=== PATIENT | female | born 1950 | race Caucasian/White ===

== ENCOUNTER 2021-07-08 11:09 | Inpatient (IN) | payer OTHER, MEDICARE ==
[2021-07-08] MEDS ORDERED: SODIUM CHLORIDE 1,000 ML IV STA (13:10)
[2021-07-08 13:59] LABS: HEMOGLOBIN 13.9 GM/dL (10.7-15.3); MCH 29.1 pg (25.7-33.7); MCHC 33.9 g/dl (32.0-36.0); MEAN PLT VOLUME 8.9 fl (7.5-11.1); RBC 4.76 M/mm3 (3.60-5.2); RDW 14.6 % (11.6-15.6); WHITE BLOOD COUNT 2.1 K/mm3 (4.0-10.0)
[2021-07-08 14:13] LABS: EPI CELLS 20 /uL (0-25.1); HYALINE CASTS 12 /uL (0-3.1); URINE APPEARANCE CLEAR; URINE BACTERIA 13 /uL (0-1359); URINE BILIRUBIN 2+ (NEGATIVE); URINE COLOR DK YELLOW; URINE GLUCOSE (UA) NEGATIVE (NEGATIVE); URINE KETONE 3+ (NEGATIVE); URINE LEUK ESTERASE TRACE (NEGATIVE); URINE NITRITE NEGATIVE (NEGATIVE); URINE PROTEIN 3+ (NEGATIVE); URINE RBC 18 /uL (0-23.9); URINE WBC 19 /uL (0-25.8)
[2021-07-08 14:21] LABS: ALBUMIN 3.2 g/dl (3.4-5.0); BLOOD UREA NITROGEN 20.9 mg/dL (7-18)
[2021-07-08 14:24] LABS: CREATININE 0.8 mg/dL (0.55-1.3)
[2021-07-08 14:25] LABS: BILIRUBIN,TOTAL 1.4 mg/dL (0.2-1)
[2021-07-08 14:26] LABS: TOT PROT 6.3 g/dl (6.4-8.2)
[2021-07-08 14:44] LABS: ANISOCYTOSIS 0; HELMET CELLS 0; HOWELL-JOLLY BODIES 0; MACROCYTOSIS 0; OVALOCYTE 0; ROULEAU 0; SICKELED CELLS 0; TARGET CELLS 0; TEAR DROP CELLS 0; TOXIC GRANULATION 0
[2021-07-08 14:47] LABS: PLATELET COUNT 41 10^3/uL (134-434)
[2021-07-08 17:58] LABS: URIC ACID 3.1 mg/dL (2.6-7.2)
[2021-07-08] MEDS ORDERED: ALPRAZolam 0.25 MG TABLET PO PRN (18:00)
[2021-07-08 18:46] LABS: ACTIVATED PTT 38.6 SECONDS (25.2-36.5); INR 1.02 (0.83-1.09); PROTHROMBIN TIME (PATIENT) 11.7 SEC (9.7-13.0)
[2021-07-08] MEDS: DOXYCYCLINE INJECTION 100 MG in DEXTROSE 5%-WATER 100 ML IVPB SCH (22:35)
[2021-07-09] MEDS ORDERED: DOXYCYCLINE HYCLATE 100 MG VIAL ONE ×3 (00:56→21:49)
[2021-07-09] MEDS ORDERED: CEFTRIAXONE 500 MG in DEXTROSE 5%-WATER - 50 ML IVPB ONE (01:53)
[2021-07-09] MEDS ORDERED: CEFTRIAXONE 1 GM in DEXTROSE 5%-WATER - 50 ML IVPB ONE ×2 (01:53→04:45)
[2021-07-09] MEDS ORDERED: cefTRIAXone SODIUM 1 GM VIAL ONE (06:01)
[2021-07-09] MEDS ORDERED: DEXTROSE 5%-WATER - 50 ML IVPB ONE (06:01)
[2021-07-09] MEDS ORDERED: DEXTROSE 5%-WATER 100 ML IVPB ONE ×2 (09:19→21:49)
[2021-07-09 09:34] LABS: PHOSPHOROUS 2.2 mg/dL (2.5-4.9)
[2021-07-09] MEDS: DOXYCYCLINE INJECTION 100 MG in DEXTROSE 5%-WATER 100 ML IVPB SCH ×2 (10:03→22:13)
[2021-07-09 10:35] LABS: HEMATOCRIT 36.3 % (32.4-45.2); HEMOGLOBIN 12.4 GM/dL (10.7-15.3); MCH 29.3 pg (25.7-33.7); MCHC 34.2 g/dl (32.0-36.0); MEAN CELL VOLUME 85.5 fl (80-96); MEAN PLT VOLUME 9.1 fl (7.5-11.1); RBC 4.24 M/mm3 (3.60-5.2); RDW 14.3 % (11.6-15.6)
[2021-07-09] MEDS ORDERED: NAPH,MB-DB/K PH,MBDB POWDER PACKET PO ONE (10:45)
[2021-07-09 11:21] LABS: HIV INTERPRETATION NEGATIVE (NEGATIVE)
[2021-07-09 11:43] LABS: PLATELET COUNT 34 10^3/uL (134-434); PLATELET ESTIMATE DECREASED; WHITE BLOOD COUNT 1.8 K/mm3 (4.0-10.0)
[2021-07-09] MEDS: busPIRone HCL 10 MG TABLET (FP) PO SCH ×2 (11:50→22:13)
[2021-07-09 15:13] LABS: BILIRUBIN,DIRECT 0.2 mg/dL (0.0-0.2)
[2021-07-09 15:21] LABS: BLOOD UREA NITROGEN 14.9 mg/dL (7-18); CALCIUM 8.8 mg/dL (8.5-10.1)
[2021-07-09 15:24] LABS: BILIRUBIN,DIRECT 0.2 mg/dL (0.0-0.2); CREATININE 0.7 mg/dL (0.55-1.3)
[2021-07-09 15:26] LABS: BILIRUBIN,TOTAL 0.6 mg/dL (0.2-1)
[2021-07-09 16:23] LABS: BLOOD UREA NITROGEN 15.9 mg/dL (7-18); CALCIUM 8.9 mg/dL (8.5-10.1)
[2021-07-09 16:27] LABS: CREATININE 0.7 mg/dL (0.55-1.3)
[2021-07-09] MEDS: ALPRAZolam 0.25 MG TABLET PO PRN (22:17)
[2021-07-10 06:07] LABS: CMV IgM < 30.0 AU/mL (0.0-29.9)
[2021-07-10] MEDS ORDERED: DOXYCYCLINE HYCLATE 100 MG VIAL ONE (09:03)
[2021-07-10] MEDS ORDERED: DEXTROSE 5%-WATER 100 ML IVPB ONE ×2 (09:03)
[2021-07-10 09:25] LABS: HEMATOCRIT 39.6 % (32.4-45.2); HEMOGLOBIN 13.1 GM/dL (10.7-15.3); MCH 28.7 pg (25.7-33.7); MCHC 33.1 g/dl (32.0-36.0); MEAN CELL VOLUME 86.9 fl (80-96); MEAN PLT VOLUME 9.6 fl (7.5-11.1); PLATELET COUNT 51 10^3/uL (134-434); RBC 4.56 M/mm3 (3.60-5.2); RDW 14.7 % (11.6-15.6)
[2021-07-10] MEDS: busPIRone HCL 10 MG TABLET (FP) PO SCH ×2 (09:44→21:11)
[2021-07-10] MEDS: ALPRAZolam 0.25 MG TABLET PO PRN ×2 (09:46→21:11)
[2021-07-10 09:50] LABS: BLOOD UREA NITROGEN 16.1 mg/dL (7-18); CALCIUM 9.2 mg/dL (8.5-10.1)
[2021-07-10 09:54] LABS: BLOOD UREA NITROGEN 15.7 mg/dL (7-18); CALCIUM 9.1 mg/dL (8.5-10.1); CREATININE 0.8 mg/dL (0.55-1.3); MAGNESIUM 2.3 mg/dL (1.8-2.4)
[2021-07-10 09:56] LABS: BILIRUBIN,DIRECT 0.2 mg/dL (0.0-0.2)
[2021-07-10 09:58] LABS: CREATININE 0.7 mg/dL (0.55-1.3); PHOSPHOROUS 2.9 mg/dL (2.5-4.9)
[2021-07-10 09:59] LABS: BILIRUBIN,TOTAL 0.9 mg/dL (0.2-1)
[2021-07-10] MEDS ORDERED: CEFTRIAXONE 2 GM in DEXTROSE 5%-WATER 2 GM/100 ML BAG IVPB SCH (10:00)
[2021-07-10 10:07] LABS: ANISOCYTOSIS 0; HELMET CELLS 0; HOWELL-JOLLY BODIES 0; MACROCYTOSIS 0; OVALOCYTE 0; ROULEAU 0; SICKELED CELLS 0; TARGET CELLS 0; TEAR DROP CELLS 0; TOXIC GRANULATION 0
[2021-07-10] MEDS: DOXYCYCLINE INJECTION 100 MG in DEXTROSE 5%-WATER 100 ML IVPB SCH (11:46)
[2021-07-10 15:22] VITALS: BMI 26.2
[2021-07-10] MEDS: DOXYCYCLINE HYCLATE 100 MG CAPSULE PO SCH (17:09)
[2021-07-11 08:42] LABS: HEMATOCRIT 36.1 % (32.4-45.2); HEMOGLOBIN 11.9 GM/dL (10.7-15.3); MCH 28.5 pg (25.7-33.7); MEAN CELL VOLUME 86.5 fl (80-96); MEAN PLT VOLUME 9.1 fl (7.5-11.1); PLATELET COUNT 82 10^3/uL (134-434); RBC 4.17 M/mm3 (3.60-5.2); RDW 14.8 % (11.6-15.6); WHITE BLOOD COUNT 5.7 K/mm3 (4.0-10.0)
[2021-07-11 08:51] LABS: ALBUMIN 2.8 g/dl (3.4-5.0); BLOOD UREA NITROGEN 12.7 mg/dL (7-18); CALCIUM 8.8 mg/dL (8.5-10.1); MAGNESIUM 2.2 mg/dL (1.8-2.4)
[2021-07-11 08:54] LABS: CREATININE 0.6 mg/dL (0.55-1.3)
[2021-07-11 08:56] LABS: BILIRUBIN,TOTAL 0.7 mg/dL (0.2-1); TOT PROT 5.6 g/dl (6.4-8.2)
[2021-07-11 10:08] VITALS: BP 110/74; PULSE 78; TEMP 98.2
[2021-07-11] MEDS: ALPRAZolam 0.25 MG TABLET PO PRN (10:12)
[2021-07-11] MEDS: busPIRone HCL 10 MG TABLET (FP) PO SCH (10:12)
[2021-07-11] MEDS: DOXYCYCLINE HYCLATE 100 MG CAPSULE PO SCH (10:12)
[2021-07-11 14:47] LABS: BILIRUBIN,DIRECT 0.1 mg/dL (0.0-0.2)
[2021-07-14 13:08] LABS: BABESIA MICROTI ANTIBODY IGG <1:10 (Neg:<1:10); BABESIA MICROTI ANTIBODY IGM <1:10 (Neg:<1:10)
== END 2021-07-11 13:23 | disposition home or self-care (01) | DRG 866 ==
LOC: JER 11:09 → JERBED 17:43 → J7W 07-09 02:06
PROVIDERS: ADMIT Internal Medicine; ATTEND Internal Medicine
DX: A93.8 Other specified arthropod-borne viral fevers (principal); D69.6 Thrombocytopenia, unspecified; R74.01 Elevation of levels of liver transaminase levels; R53.83 Other fatigue; R52 Pain, unspecified; F41.9 Anxiety disorder, unspecified; R94.5 Abnormal results of liver function studies; R31.9 Hematuria, unspecified; D72.819 Decreased white blood cell count, unspecified
CPT/HCPCS: 0241U-QW; 36415; 71045-TC-FY; 74176-TC; 74177-TC; 76705-TC; 80048; 80053; 80076; 81003; 82248; 82728; 82930; 83010; 83615; 83735; 84100; 84478; 84550; 85025; 85027; 85045; 85610; 85730; 86618; 86644; 86645; 86663; 86753; 86850; 86900; 86901; 87040; 87086; 87207; 87389; 87798; 99285-25; Q9967